=== PATIENT | male | born 1965 | race African-American/Black ===

== ENCOUNTER 2021-08-03 12:14 | Emergency (ER) | payer MEDICARE, OTHER ==
[~2021-08-03] VITALS: Ht 182.9 cm; Wt 88.6 kg
--- NOTE | 2021-08-03 13:51 | REP ---
INDICATION: pain. COMPARISON: None. TECHNIQUE: Four views. FINDINGS: Four views of the right elbow demonstrate old post traumatic deformity of the distal humerus. There is medial epicondylar spurring. There is fragmented and large spurring at the olecranon process. There is some overlying Aggie olecranon soft tissue swelling visible on the lateral radiograph. Mild coronoid process osteoarthritic spurring is present as well. There is no evidence of joint effusion. No fracture is seen. No erosive changes noted. No opaque foreign body noted. 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 Olecranon process spurring with some adjacent soft tissue swelling. Old posttraumatic deformity of the distal humerus. Medial epicondylar spurring. No acute bony abnormality <Electronically signed by Brian Sánchez > 08/03/21 [id number]
[2021-08-03] MEDS ORDERED: PRED20TA PO (14:55)
[2021-08-03 15:50] VITALS: BP 126/78
== END 2021-08-03 15:53 | disposition home or self-care (01) ==
LOC: M ED 12:14
DX: M19.121 Post-traumatic osteoarthritis, right elbow (principal)